=== PATIENT | male | born 1960 | race Caucasian/White ===

== ENCOUNTER → 2017-12-21 09:21 | Outpatient (CLI) | payer OTHER, SELFPAY ==
[2017-11-08 14:17] VITALS: BP 155/96; PULSE 84; RESP 16; TEMP 37.1; O2SAT 93; BMI 36.3
--- NOTE | 2017-11-08 14:24 | SDCEKG_ITS ---
Test Reason : Blood Pressure : / mmHG Vent. Rate : 083 BPM Atrial Rate : 083 BPM P-R Int : 162 ms QRS Dur : 108 ms QT Int : 380 ms P-R-T Axes : 044 001 021 degrees QTc Int : 446 ms Sinus rhythm with frequent Premature ventricular complexes Possible Inferior infarct , age undetermined Abnormal ECG Confirmed by VIOLA TOWNSEND, JL ([id number]), editor managing newspaper JESSE IRENE ([id number]) on 11/10/2017 3:31:41 PM Referred By: PAO Confirmed By:JL ROD MD
[2017-11-08 15:12] LABS: Absolute Lymphocyte Count 2.23 X10^3/ul (0.83-4.51); Absolute Neutrophil Count 6.1 X10^3/uL (2.0-7.7); Basophil# 0.03 X10^3/uL; Basophil% 0.3 % (0-1); Eosinophil# 0.06 X10^3/uL; Eosinophils% 0.7 % (0-5); Hematocrit 39.3 % (40-54); Hemoglobin 12.9 g/dl (13.0-16.5); Lymphocyte # 2.23 X10^3/ul (4.0); Lymphocyte % 24.5 % (19-41); Mean Corp Hgb Conc 32.8 g/gl (32-36); Mean Corpuscular Hgb 30.9 pg (27.0-32.0); Mean Platelet Vol. 9.4 fl (6.2-12.0); Monocyte# 0.56 X10^3/uL; Monocyte% 6.2 % (0-10); Neutrophil # 6.13 X10^3/uL (2.7-7.7); Neutrophil % 67.4 % (47-70); Platelet Count 284 K/mm3 (150-450); RBC Distribution Width CV 13.7 % (11.6-14.6); RBC Distribution Width SD 45.6 fl (35.1-43.9); Red Blood Count 4.18 M/mm3 (4.6-6.2); White Blood Count 9.1 K/mm3 (4.4-11.0)
[2017-11-08 15:13] LABS: POSITIVE COUNT NO; POSITIVE DIFFERENTIAL NO; POSITIVE MORPHOLOGY NO
[2017-11-08 15:29] LABS: Anion Gap 8 (5-15); BUN 28 mg/dL (7-18); BUN/Creat Ratio 29.7 RATIO (10-20); Calcium,Total 9.1 mg/dL (8.5-10.1); Chloride 107 mmol/L (98-107); Creatinine, Serum 0.94 mg/dL (0.70-1.30); EST Glomerular Filtration Rate 87 mL/min (>60); Est Glom Filt Rate - Afr Amer 105 mL/min (>60); Estimated Creatinine Clearance 96.81 ml/min; Glucose 99 mg/dL (70-110); Sodium Level 141 mmol/L (136-145)
== END ==
PROVIDERS: Family Provider Internal Medicine; PCP Internal Medicine; Visit Provider Specialist
DX: T84.031A Mechanical loosening of internal left hip prosthetic joint, initial encounter (principal)
CPT/HCPCS: 80048; 85025; 87077; 87081; 93005

== ENCOUNTER → 2018-01-19 14:28 | Outpatient (CLI) | payer OTHER, SELFPAY | PROVIDERS: Visit Provider Nurse Practitioner Adult Health | DX: R33.9 Retention of urine, unspecified (principal) | CPT/HCPCS: 87086 ==

== ENCOUNTER 2018-03-02 11:17 | Day surgery (SDC) | payer OTHER, SELFPAY ==
[2018-02-23 14:08] VITALS: BP 146/92; PULSE 71; RESP 16; TEMP 36.7; O2SAT 94; BMI 35.1
[2018-03-02] VITALS (11 sets, daily range): BP systolic 123–169; BP diastolic 83–102; PULSE 72–85; RESP 16–18; TEMP 36.2–37.2; O2SAT 96–100; BMI 35.1; BMI 33.0
[2018-03-02] MEDS: Cefazolin 2 GM in 0.9% Normal Saline 100 ML IV (12:40)
--- NOTE | 2018-03-02 13:25 | PROS_PTH ---
PATIENT: YEVGENIY BUSH LOC: [facility] [place] U#:[id number] AGE/SX: 58/M ROOM: RE03/02/[address]: Dr. Guille Vasquez MD : 1960 BED: DIS: 03/03/2018 SPEC #: [id number] RECD: 03/02/18 15:22 STATUS: STACY ANGEL #: [id number] MARLEN: 03/02/18 13:[address]: Guille Vasquez DEPT: SURGICAL PATHOLOGY RECD BY: Macario Villarreal ENTERED: 03/03/18 12:11 SP TYPE: TURP OTHR DR: Dr. Antonia Torres, DO Tissues: Prostate, NOS Procedures: Surgery Specimen Level IV HEADER OPERATION: Cysto, TUR, prostate, Olympus PRE-OP DIAGNOSIS: BPH with urinary retention TISSUE SUBMITTED: Prostate tissue MICROSCOPIC DIAGNOSIS Prostate tissue, TUR: Benign prostatic hyperplasia, glandular and stromal type. Mild acute and chronic inflammation. SJ:uday 03/04/18 MICROSCOPIC DESCRIPTION Slides are reviewed. GROSS DESCRIPTION Received is one container labeled with the patient's name and designated prostate tissue. The specimen consists of multiple irregular fragments of pink-rnedon, rubbery, soft tissue that in aggregate weigh 54.2 gm and measure in aggregate 6.5 x 6.5 x 4.5 cm. Commercial Drafter portions are submitted in 13 cassettes. / AM:uday 03/03/18 TC:5 CPT: 57928
--- NOTE | 2018-03-02 14:30 | PCM.OPRPT ---
Report of Operation Date of Procedure: 03/02/18 Pre-Operative Diagnosis: BPH with obstruction and urinary retention Post-Operative Diagnosis: Same Surgery/Procedure Performed:: Transurethral resection of the prostate Description of Surgical Findings:: 58-year-old male taken back to the operating room after smooth induction of general anesthesia he was placed supine on the table the catheter was removed the penis testicles were prepped and draped in usual sterile fashion went into the bladder with a 26 Serbian continuous flow resectoscope had a fiery large prostate with bilateral hypertrophy no median lobe I then started the resection of the prostate resected at the 6 o'clock position resected all the way back to the verumontanum and then resected the right lobe of the prostate and the resected the left lobe the prostate and switch back to the Ellik and and resected the apical tissue at the end of the resection had an open channel from the verumontanum into the bladder neck wide open still the sphincter was intact pulled back in his fingers sphincter was pulling together from the sphincter had a wide open resection of the bladder up try Crede maneuver however was not quite as strong as could a maneuver but did not want resect any more tissue had a nice wide open channel from the Jerome into the bladder after completion of the resection of the resection took about an hour placed the catheter into the bladder and Ellik out all the chips and the put the bladder and continues continues irrigation the urine is nice and clear. Type of Anesthesia:: General Drains: rutledge 3 way. - Admit VTE Documentation VTE Present on Admission: No VTE Mechan Device Prophylaxis: SCD's VTE Pharm Prophylaxis ordered?: No Reason prophylaxis not ordered:: Treatment Not Indicated
[2018-03-02] MEDS: 0.9% Normal Saline 1,000 ML 125 ML IV (20:28)
[2018-03-02] MEDS: Docusate Sodium 100 MG Capsule PO (21:25)
[2018-03-02] MEDS: Ciprofloxacin 500 MG Tablet PO (21:25)
[2018-03-03 02:15] VITALS: BP 118/76; PULSE 67; RESP 18; TEMP 36.9; O2SAT 96
[2018-03-03 02:16] VITALS: PULSE 67
[2018-03-03] MEDS: 0.9% Normal Saline 1,000 ML 125 ML IV (04:15)
--- NOTE | 2018-03-03 07:14 | PCM.DC.URO ---
Discharge Diet: Light diet - advance as tolerated Discharge Activity: May Drive May shower in (days): 1 Call your doctor if your incision/area has: Continuous Slow Oozing, Sudden Increased Bleeding, Increased Pain/ Swelling, Increased Redness, Foul Smelling Discharge, Swelling at the incision site Call your doctor if you observe: Fever of 101 or Higher, Inability to urinate, Uncontrolled pain Instructions: Transurethral Resection of the Prostate (TURP): Home Recovery Allergies/Adverse Reactions: Allergies hydrocodone Allergy (Verified 12/15/17 07:35) BLISTERS Medications to take at Discharge Furosemide [Lasix] 40 mg PO DAILY 11/08/17 lisinopril 20 mg tablet 20 mg PO BID tab 11/12/17 Amlodipine [Norvasc] 5 mg PO DAILY 02/23/18 Celecoxib [Celebrex] 200 mg PO DAILY 02/23/18 Oxycodone HCl/Acetaminophen [Percocet 5-325] 1 tablet PO BID 02/23/18 Ciprofloxacin [Cipro] 500 mg PO BID #20 tab 03/03/18 Hydrocodone/Acetaminophen [Wolcott 5-325 Tablet] 1 ea PO Q6H PRN PRN 5 Days #10 tab 03/03/18 Primary Care Physician: Antonia Torres DO [Primary Care Provider] - Please Follow Up With: Guille Vasquez MD When: March 17 at 1:45pm
--- NOTE | 2018-03-03 07:20 | DCINST_ITS ---
Discharge Diet: Light diet - advance as tolerated Discharge Activity: May Drive May shower in (days): 1 Call your doctor if your incision/area has: Continuous Slow Oozing, Sudden Increased Bleeding, Increased Pain/ Swelling, Increased Redness, Foul Smelling Discharge, Swelling at the incision site Call your doctor if you observe: Fever of 101 or Higher, Inability to urinate, Uncontrolled pain Instructions: Transurethral Resection of the Prostate (TURP): Home Recovery Allergies/Adverse Reactions: Allergies hydrocodone Allergy (Verified 12/15/17 07:35) BLISTERS Medications to take at Discharge Furosemide [Lasix] 40 mg PO DAILY 11/08/17 lisinopril 20 mg tablet 20 mg PO BID tab 11/12/17 Amlodipine [Norvasc] 5 mg PO DAILY 02/23/18 Celecoxib [Celebrex] 200 mg PO DAILY 02/23/18 Oxycodone HCl/Acetaminophen [Percocet 5-325] 1 tablet PO BID 02/23/18 Ciprofloxacin [Cipro] 500 mg PO BID #20 tab 03/03/18 Hydrocodone/Acetaminophen [[place]emo 5-325 Tablet] 1 ea PO Q6H PRN PRN 5 Days #10 tab 03/03/18 Primary Care Physician: Antonia Torres DO [Primary Care Provider] - Please Follow Up With: Guille Vasquez MD When: March 17 at 1:45pm
[2018-03-03] MEDS: BENZOCAINE/MENTHOL 1 LOZENGE MUCOUS MEM (08:01)
[2018-03-03 08:39] VITALS: BP 141/91; PULSE 73; RESP 18; TEMP 36.8; O2SAT 97
[2018-03-03 09:45] VITALS: PULSE 80
[2018-03-03] MEDS: Pantoprazole Sodium 40 MG Tablet PO (10:46)
[2018-03-03] MEDS: Ciprofloxacin 500 MG Tablet PO (10:46)
[2018-03-03] MEDS: Docusate Sodium 100 MG Capsule PO (10:46)
[2018-03-03 12:44] VITALS: BP 125/71; PULSE 92; RESP 18; TEMP 36.6; O2SAT 92
== END 2018-03-03 13:08 | disposition home or self-care (01) ==
LOC: SDC 11:19 → AC 11:48 → MS3 14:57
PROVIDERS: Family Provider Internal Medicine; PCP Internal Medicine; Visit Provider Urology
PROC: (CPT 52601; principal; 2018-03-02 13:15)
DX: N40.1 Benign prostatic hyperplasia with lower urinary tract symptoms (principal); R33.8 Other retention of urine; N41.0 Acute prostatitis; N41.1 Chronic prostatitis; I10 Essential (primary) hypertension; G47.30 Sleep apnea, unspecified; Z79.899 Other long term (current) drug therapy
CPT/HCPCS: 52601; 88305; J7030; J7120; J2405

== ENCOUNTER → 2018-03-22 07:55 | Outpatient (CLI) | payer OTHER, SELFPAY | PROVIDERS: Family Provider Internal Medicine; PCP Internal Medicine; Visit Provider Nurse Practitioner Adult Health | DX: R31.9 Hematuria, unspecified (principal) | CPT/HCPCS: 87086 ==

== ENCOUNTER → 2018-07-18 12:01 | Outpatient (CLI) | payer OTHER, SELFPAY ==
[2018-07-18 12:33] LABS: Absolute Lymphocyte Count 1.04 X10^3/ul (0.83-4.51); Absolute Neutrophil Count 1.5 X10^3/uL (2.0-7.7); Basophil# 0.01 X10^3/uL; Basophil% 0.4 % (0-1); Eosinophil# 0.01 X10^3/uL; Eosinophils% 0.4 % (0-5); Hematocrit 41.9 % (40-54); Hemoglobin 13.7 g/dl (13.0-16.5); Lymphocyte # 1.04 X10^3/ul (4.0); Lymphocyte % 37.4 % (19-41); Mean Corp Hgb Conc 32.7 g/gl (32-36); Mean Corpuscular Hgb 29.5 pg (27.0-32.0); Mean Corpuscular Volume 90.1 fL (80-94); Mean Platelet Vol. 9.4 fl (6.2-12.0); Monocyte# 0.19 X10^3/uL; Monocyte% 6.8 % (0-10); Neutrophil # 1.53 X10^3/uL (2.7-7.7); Platelet Count 196 K/mm3 (150-450); RBC Distribution Width CV 15.4 % (11.6-14.6); RBC Distribution Width SD 50.6 fl (35.1-43.9); Red Blood Count 4.65 M/mm3 (4.6-6.2); White Blood Count 2.8 K/mm3 (4.4-11.0)
[2018-07-18 12:34] LABS: POSITIVE COUNT NO; POSITIVE DIFFERENTIAL NO; POSITIVE MORPHOLOGY NO
[2018-07-18 12:47] LABS: Erythrocyte Sedimentation Rate 31 mm/hr (0-20)
[2018-07-18 12:55] LABS: CRP 4.74 mg/L (0.0-3.0)
== END ==
PROVIDERS: Family Provider Internal Medicine; PCP Internal Medicine; Visit Provider Specialist
DX: Z96.642 Presence of left artificial hip joint (principal)
CPT/HCPCS: 36415; 85025; 85652; 86140

== ENCOUNTER → 2018-08-03 09:19 | Outpatient (CLI) | payer OTHER, SELFPAY ==
--- NOTE | 2018-08-03 09:38 | RAD_ITS ---
CLINICAL HISTORY: Male, 58 years old. Left hip pain. Prior left hip arthroplasty. PROCEDURE: Left hip arthrocentesis. CONSENT: The procedure as well as the benefits and possible complications including infection and bleeding were expanding to the patient. Informed consent was obtained. FLUOROSCOPY TIME (if supplied): (0:29) minutes/seconds Fluid Removal: 3 cc of clear fluid. TECHNIQUE: (All elements of maximal sterile barrier technique followed, including US elements as applicable) The patient was in the supine position. The overlying skin was prepped and draped in usual sterile fashion. Following local anesthetic application and under direct fluoroscopic guidance, a 22-gauge spinal needle was placed into the hip joint. 2 cc of contrast was injected for confirmation. Following this, 3 cc of clear fluid was aspirated. The specimen was sent to the laboratory. RAD/Inj/Asp Sherman Jt Should/Hip/Knee IMPRESSION: Left hip aspiration. Electronically Signed: Yossi Butler MD at 12:54 EDT Tel [phone], Service support ,
[2018-08-03 11:17] LABS: Appearance/Body Fluid CLEAR; Color/Body Fluid COLORLESS
[2018-08-03 11:18] LABS: Body Fluid QC Type(s) BF2Q
[2018-08-04 14:16] LABS: Auto B Fluid Analyzer BKGD Ct COUNTS W/IN LIMITS (W/IN LIMITS)
== END ==
PROVIDERS: Family Provider Internal Medicine; PCP Internal Medicine; Visit Provider Specialist
DX: M25.552 Pain in left hip (principal); Z96.642 Presence of left artificial hip joint
CPT/HCPCS: 20610; 77002; 87015; 87070; 87075; 87101; 87116; 87205; 87206; 89050; Q9967

== ENCOUNTER → 2019-07-17 14:01 | Outpatient (CLI) | payer OTHER, SELFPAY ==
[2018-03-02 16:48] VITALS: BMI 33.0
[2019-07-17 15:28] LABS: PSA,Total - Annual Screen 1.23 ng/mL (0.00-4.00)
== END ==
PROVIDERS: Family Provider Internal Medicine; PCP Internal Medicine; Referring Provider Urology; Visit Provider Urology
DX: Z12.5 Encounter for screening for malignant neoplasm of prostate (principal)
CPT/HCPCS: 36415; 84153; G0103

== ENCOUNTER 2021-07-14 12:30 | Emergency (ER) | payer OTHER, SELFPAY ==
[2021-07-14 12:31] VITALS: BP 133/77; PULSE 48; RESP 18; TEMP 38.1; O2SAT 98; BMI 39.3
[2021-07-14 13:34] LABS: Absolute Lymphocyte Count 1.13 X10^3/uL (0.83-4.51); Absolute Neutrophil Count 15.2 X10^3/uL (2.0-7.7); Basophil# 0.04 X10^3/uL; Basophil% 0.2 % (0-1); Eosinophil# 0.01 X10^3/uL; Eosinophils% 0.1 % (0-5); Hematocrit 46.1 % (40-54); Lymphocyte # 1.13 X10^3/ul (0.83-4.51); Lymphocyte % 6.4 % (19-41); Mean Corp Hgb Conc 32.5 g/dL (32-36); Mean Corpuscular Hgb 30.4 pg (27.0-32.0); Mean Corpuscular Volume 93.5 fL (80-94); Mean Platelet Vol. 9.4 fl (6.2-12.0); Monocyte# 1.06 X10^3/uL; NRBC Flagged by Analyzer 0 % (0-5); Neutrophil % 86.6 % (47-70); Platelet Count 224 K/mm3 (150-450); RBC Distribution Width CV 13.7 % (11.6-14.6); RBC Distribution Width SD 46.5 fl (35.1-43.9); Red Blood Count 4.93 M/mm3 (4.6-6.2); White Blood Count 17.6 K/mm3 (4.4-11.0)
[2021-07-14 13:35] VITALS: BP 133/77; PULSE 48; RESP 18; TEMP 38.1; O2SAT 98
[2021-07-14 13:49] LABS: Anion Gap 6 (5-15); BUN 19 mg/dL (7-18); BUN/Creat Ratio 15.2 RATIO (10-20); Calcium,Total 9.1 mg/dL (8.5-10.1); Chloride 102 mmol/L (98-107); Creatinine, Serum 1.25 mg/dL (0.70-1.30); EST Glomerular Filtration Rate 62 mL/min (>60); Est Glom Filt Rate - Afr Amer 75 mL/min (>60); Estimated Creatinine Clearance 67.25 ml/min; Glucose 135 mg/dL (74-106); Potassium 4.6 mmol/L (3.5-5.1); Sodium Level 135 mmol/L (136-145)
[2021-07-14 14:40] LABS: Mucous, Urine 0 SEEN /hpf (<or=2+)
[2021-07-14 14:51] LABS: Color, Urine Yellow (Yellow); Glucose, Dipstick Normal (Normal); Ketone-Dipstick Negative (Negative); Leukocyte Esterase-Dipstick 500 /ul (Negative); Nitrite-Dipstick Positive (Negative); Occult Blood-Urine 250 /ul (Negative); Protein-Dipstick 100 mg/dl (Negative); Urine Bilirubin Dipstick Negative (Negative); Urine Clarity Cloudy (Clear); Urine Urobilinogen Normal (Normal); Urine pH 6.5 (5.0 - 8.0)
[2021-07-14 14:54] LABS: Lactic Acid 1.4 mmol/L (0.4-1.9)
[2021-07-14] MEDS: 0.9% Normal Saline 1,000 ML 999 ML IV (14:57)
[2021-07-14 14:58] LABS: Bacteria 2+ /hpf (None Seen); Red Blood Cells-Urine 10-25 SEEN /hpf (0-5); Squamous Epithelial Cells - UA 0-5 SEEN /hpf (0-5); White Blood Cells 50-100 SEEN /hpf (0-5)
--- NOTE | 2021-07-14 15:00 | RAD_ITS ---
STUDY: X-RAY CHEST REASON FOR EXAM: Male, 61 years old. Fever and nausea. Body aches. Severe headaches. TECHNIQUE: Single AP portable view of the chest. COMPARISON: Comparison is made with prior examination dated 11/11/2017. FINDINGS: Stable mild increased markings at the lung bases slightly more prominent on the left side suggests bibasilar atelectasis. There is no demonstrated pleural abnormality. Normal size heart. Normal mediastinum and jay. Normal visualized pulmonary arteries. Normal visualized aortic arch and descending thoracic aorta. There are degenerative changes of the visualized thoracic spine. Normal visualized ribs, clavicles, and shoulders. There is no demonstrated abnormality of the visualized soft tissue structures of the upper abdomen. RAD/Chest 1 View (Portable) IMPRESSION: Increased markings at the lung bases suggestive of bibasilar atelectasis. There has been essentially no change as compared to prior study. Electronically Signed: Yossi Butler MD at 15:16 EDT , Service support ,
[2021-07-14 15:17] VITALS: BP 130/78; PULSE 89; RESP 18; TEMP 36.6; O2SAT 97
[2021-07-14] MEDS: Ceftriaxone 1 GM/50 ML BAG IV (15:44)
--- NOTE | 2021-07-14 16:14 | EX.ED.DYSGE1 ---
HPI History of Present Illness Chief Complaint: Fever Narrative Narrative: Patient presented to an urgent care with fevers, dysuria, burning with urination and frequency of urination. He was found to have leukocytosis and was sent to the ED. He has no flank pain. He denies testicular pain. He has no pain with bowel movements. He has no abdominal pain. He has no cough or congestion or respiratory symptoms he has no upper respiratory congestion. He has no rash or neck stiffness. PFSH PFS Medical History (Updated 07/14/21 @ 16:[address] Javad Yanez MD) Abnormal EKG Diastolic dysfunction History of echocardiogram (~11/2016) Hypertension PVC's (premature ventricular contractions) Home Medications furosemide 40 mg PO DAILY 11/08/17 [History Last Taken Unknown] lisinopril 20 mg tablet 20 mg PO BID tab 11/12/17 [History Last Taken 03/02/18 06:00] amlodipine 5 mg PO DAILY 02/23/18 [History Last Taken 03/02/18 06:00] celecoxib [Celebrex] 200 mg PO DAILY 02/23/18 [History Last Taken Unknown] oxycodone-acetaminophen 1 tab PO BID 02/23/18 [History Last Taken Unknown] ciprofloxacin HCl 500 mg PO BID #20 tab 03/03/18 [Rx Last Taken Unknown] hydrocodone-acetaminophen 1 ea PO Q6H PRN PRN 5 Days #10 tab 03/03/18 [Rx Last Taken Unknown] Allergy/AdvReac Type Severity Reaction Status Date / Time hydrocodone Allergy BLISTERS Verified 07/14/21 12:33 Family History Mother Hypertension Surgical History History of cataract surgery History of hernia repair (~2012) History of left hip replacement (~09/2016) S/P bunionectomy Social History (Updated 11/12/17 @ 17:[address] Javad Wells MD) Smoking Status: Never smoker alcohol intake: never substance use type: does not use ROS ROS ED ROS Narrative Past medical history: Reviewed Medications: Reviewed Social history: Noncontributory Review of systems: All systems negative except as indicated General: Fever as in HPI Eyes: No visual changes ENT: No upper airway congestion, normal voice Neck: No neck pain Cardiovascular: No chest pain Respiratory: No shortness of breath or cough Gastrointestinal: No abdominal pain, nausea vomiting or diarrhea Genitourinary: Dysuria and frequency as in HPI. No testicular pain. Musculoskeletal: Denies myalgias no difficulty with ambulation Skin: No rash Neurological: No memory loss, confusion or any focal weakness Psych: No recent behavioral changes Hematologic: No easy bleeding or easy bruising EXAM Physical Exam Narrative Exam Narrative: Physical exam General: Patient appears uncomfortable. Head: Normocephalic, Atraumatic Eyes: Conjunctiva not pale ENT: Moist mucous membranes Neck: Supple, Nontender, No lymphadenopathy Cardiovascular: Regular rate, Regular rhythm Respiratory: No distress, CTA bilaterally Abdomen: Soft, Nontender, Nondistended. No suprapubic pain. Back: Nontender, Normal Inspection. Negative for: CVA tenderness Extremities: Nontender, No edema Skin: Normal color, No rash Neurological: Alert, Normal Strength, Normal Sensation Psychological: Normal affect Const Vital Signs: 07/14/21 12:31 07/14/21 13:35 07/14/21 15:17 Temperature 100.6 F H 100.6 F H 97.9 F Temperature Source Temporal Temporal Oral Pulse Rate 48 L 48 L 89 Respiratory Rate 18 18 18 Blood Pressure 133/77 H 133/77 H 130/78 H Blood Pressure Mean 95 95 95 Pulse Ox 98 98 97 Oxygen Delivery Method Room Air Room Air Room Air MDM MDM MDM Narrative Medical decision making narrative: Patient is found to have a UTI. This is consistent with the signs and symptoms. There is no evidence of sepsis. He appears well. He received Rocephin in the ED and will be discharged with cefdinir. He has no flank pain I am not suspicious of a kidney stone at this time, he has no other signs or symptoms of epididymitis or prostatitis. If he worsens he is to return. He understands this. Lab Data Labs: Laboratory Results - last 24 hr 07/14/21 07/14/21 07/14/21 13:25 13:25 14:23 WBC 17.6 H RBC 4.93 Hgb 15.0 Hct 46.1 MCV 93.5 MCH 30.4 MCHC 32.5 RDW Std Deviation 46.5 H RDW Coeff of Pawel 13.7 Plt Count 224 MPV 9.4 Immature Gran % (Auto) 0.700 Neut % (Auto) 86.6 H Lymph % (Auto) 6.4 L [place] % (Auto) 6.0 Eos % (Auto) 0.1 Baso % (Auto) 0.2 Absolute Neuts (auto) 15.2 H Absolute Lymphs (auto) 1.13 Nucleated RBC % 0 Sodium 135 L Potassium 4.6 Chloride 102 Carbon Dioxide 27.0 Anion Gap 6 BUN 19 H Creatinine 1.25 Estim Creat Clear Calc 67.25 Est GFR (MDRD) Af Amer 75 Est GFR (MDRD) Non-Af 62 BUN/Creatinine Ratio 15.2 Glucose 135 H Lactic Acid 1.4 Calcium 9.1 Urine Color Urine Clarity Urine pH Ur Specific [place] Urine Protein Urine Glucose (UA) Urine Ketones Urine Occult Blood Urine Nitrite Urine Bilirubin Urine Urobilinogen Ur Leukocyte Esterase Urine RBC Urine WBC Ur Squamous Epith Cells Urine Bacteria Urine Mucus 07/14/21 14:35 WBC RBC Hgb Hct MCV MCH MCHC RDW Std Deviation RDW Coeff of Pawel Plt Count MPV Immature Gran % (Auto) Neut % (Auto) Lymph % (Auto) [place] % (Auto) Eos % (Auto) Baso % (Auto) Absolute Neuts (auto) Absolute Lymphs (auto) Nucleated RBC % Sodium Potassium Chloride Carbon Dioxide Anion Gap BUN Creatinine Estim Creat Clear Calc Est GFR (MDRD) Af Amer Est GFR (MDRD) Non-Af BUN/Creatinine Ratio Glucose Lactic Acid Calcium Urine Color Yellow Urine Clarity Cloudy Urine pH 6.5 Ur Specific [place] 1.020 Urine Protein 100 H Urine Glucose (UA) Normal Urine Ketones Negative Urine Occult Blood 250 H Urine Nitrite Positive H Urine Bilirubin Negative Urine Urobilinogen Normal Ur Leukocyte Esterase 500 H Urine RBC 10-25 SEEN Urine WBC 50-100 SEEN Ur Squamous Epith Cells 0-5 SEEN Urine Bacteria 2+ Urine Mucus 0 SEEN Radiography Diagnostic Testing: Radiology Impression Chest X-Ray 07/14/21 15:00 IMPRESSION: Increased markings at the lung bases suggestive of bibasilar atelectasis. There has been essentially no change as compared to prior study. Electronically Signed: Yossi Butler MD at 15:16 EDT , Service support , Discharge Plan Triage Chief Complaint: Fever ED Provider: Javad Yanez Dx/Rx/DC Orders Clinical Impression: Acute UTI Prescriptions: No Action lisinopril 20 mg tablet 20 mg PO BID RF: 0 furosemide 40 MG tablet 40 mg PO DAILY RF: 0 celecoxib [Celebrex] 200 MG capsule 200 mg PO DAILY RF: 0 amlodipine 5 MG tablet 5 mg PO DAILY RF: 0 oxycodone-acetaminophen 1 TABLET tablet 1 tab PO BID RF: 0 hydrocodone-acetaminophen 1 EACH tablet 1 ea PO Q6H PRN PRN (Reason: Pain) 5 Days Qty: 10 RF: 0 ciprofloxacin HCl 500 MG tablet 500 mg PO BID Qty: 20 RF: 0 Primary Care Provider: Antonia Torres Referrals: Antonia Torres DO [Primary Care Provider] -
== END 2021-07-14 16:33 | disposition home or self-care (01) ==
PROVIDERS: Emergency Provider Emergency Medicine; PCP Internal Medicine
DX: N39.0 Urinary tract infection, site not specified (principal); I10 Essential (primary) hypertension; Z79.1 Long term (current) use of non-steroidal anti-inflammatories (NSAID); Z79.899 Other long term (current) drug therapy; Z96.642 Presence of left artificial hip joint
CPT/HCPCS: 71045; 80048; 81001; 83605; 85025; 96361; 96365; 99284; J7030

== ENCOUNTER → 2021-07-14 | Outpatient (CLI) | payer OTHER, SELFPAY ==
[2021-07-14 10:17] LABS: Absolute Lymphocyte Count 1.26 X10^3/uL (0.83-4.51); Absolute Neutrophil Count 15.5 X10^3/uL (2.0-7.7); Basophil# 0.05 X10^3/uL; Basophil% 0.3 % (0-1); Eosinophil# 0.01 X10^3/uL; Eosinophils% 0.1 % (0-5); Hematocrit 47.6 % (40-54); Hemoglobin 15.5 g/dL (13.0-16.5); Lymphocyte # 1.26 X10^3/ul (0.83-4.51); Lymphocyte % 6.9 % (19-41); Mean Corp Hgb Conc 32.6 g/dL (32-36); Mean Corpuscular Hgb 30.9 pg (27.0-32.0); Mean Platelet Vol. 9.8 fl (6.2-12.0); Monocyte# 1.19 X10^3/uL; Monocyte% 6.5 % (0-10); NRBC Flagged by Analyzer 0 % (0-5); Neutrophil # 15.54 X10^3/uL (2.7-7.7); Neutrophil % 85.4 % (47-70); Platelet Count 227 K/mm3 (150-450); RBC Distribution Width CV 13.8 % (11.6-14.6); RBC Distribution Width SD 47.6 fl (35.1-43.9); Red Blood Count 5.01 M/mm3 (4.6-6.2); White Blood Count 18.2 K/mm3 (4.4-11.0)
[2021-07-14 10:35] LABS: Hemoglobin A1c 5.7 % (3.8-5.6)
[2021-07-14 10:37] LABS: ALB/GLOB Ratio 1.2 RATIO (0.9-2.4); AST(SGOT) 39 U/L (15-37); Alanine Aminotransfer ALT/SGPT 83 U/L (16-61); Albumin, Serum 4.1 g/dL (3.2-5.0); Alkaline Phosphatase 82 U/L (45-117); Anion Gap 8 (5-15); BUN 17 mg/dL (7-18); BUN/Creat Ratio 14.2 RATIO (10-20); Calcium,Total 9.2 mg/dL (8.5-10.1); Chloride 102 mmol/L (98-107); EST Glomerular Filtration Rate 65 mL/min (>60); Est Glom Filt Rate - Afr Amer 79 mL/min (>60); Globulin 3.5 g/dL (2.2-4.2); Glucose 119 mg/dL (74-106); Potassium 4.6 mmol/L (3.5-5.1); Protein, Total 7.6 g/dL (6.4-8.2); Sodium Level 136 mmol/L (136-145); Thyroid Stim Hormone (TSH) 1.02 uIU/mL (0.358-3.74)
== END | disposition home or self-care (01) ==
LOC: LABSPEC 10:08
PROVIDERS: PCP Internal Medicine; Visit Provider Nurse Practitioner
DX: R11.0 Nausea (principal); R35.8 Other polyuria
CPT/HCPCS: 80053; 83036; 84443; 85025

== ENCOUNTER 2024-05-17 07:05 | Day surgery (SDC) | payer MEDICARE, SELFPAY ==
[2024-05-17] VITALS (8 sets, daily range): BP systolic 104–158; BP diastolic 69–92; PULSE 58–70; RESP 14–16; TEMP 36.2–36.3; O2SAT 93–97; BMI 39.5
--- NOTE | 2024-05-17 | COLBX_PTH ---
PATIENT: YEVGENIY BUSH LOC: [place] U#:[id number] AGE/SX: 64/M ROOM: RE05/17/[address]: Dr. Thania Maddox MD : 1960 BED: DIS: 05/17/2024 SPEC #: [id number] RECD: 05/17/24 11:11 STATUS: STACY REArchana #: [id number] MARLEN: 05/17/24 00:[address]: Thania Maddox DEPT: SURGICAL PATHOLOGY RECD BY: Dylan Dunne ENTERED: 05/17/24 12:45 SP TYPE: COLON BX OTHR DR: Dr. Antonia Torres DO Tissues: A - Ascending colon B - Descending colon C - Descending colon D - Sigmoid colon biopsy Procedures: Surgery Specimen Level IV HEADER OPERATION: Colonoscopy with polypectomy and biopsy PRE-OP DIAGNOSIS: Encounter for screening for malignant neoplasm of colon TISSUE SUBMITTED: A- Ascending colon polyp, B- Descending colon polyps x2, C- #2 descending colon polyp, D- Sigmoid polyp x2 and hot snare MICROSCOPIC DIAGNOSIS A. Ascending colon polyp, biopsy: Fragments of tubular adenoma. B. Descending colon polyps x2, biopsy: Fragments of tubular adenoma. C. Descending colon polyp #2, polypectomy: Inflammatory polyp. D. Sigmoid polyp x2, biopsy: Fragments of hyperplastic polyp. / 05/18/2024 MICROSCOPIC DESCRIPTION Slides are reviewed. GROSS DESCRIPTION A. Received in fixative is one container labeled with the patient's name and designated Ascending colon polyp. The specimen consists of multiple irregular fragments of light rendon soft tissue that in aggregate measure 0.6 x 0.5 x 0.1 cm. The specimen is totally submitted in one cassette. B. Received in fixative is one container labeled with the patient's name and designated Descending colon polyp x2. The specimen consists of multiple irregular fragments of light rendon soft tissue that in aggregate measure 0.6 x 0.5 x 0.1 cm. The specimen is totally submitted in one cassette. C. Received in fixative is one container labeled with the patient's name and designated Descending colon polyp #2. The specimen consists of a pink-red polyp measuring 0.6 x 0.7 x 0.5 cm. The presumed base is inked. The polyp is bisected and submitted entirely in one cassette. D. Received in fixative is one container labeled with the patient's name and designated Sigmoid colon polyp. The specimen consists of multiple irregular fragments of pink soft tissue mixed with fecal material that in aggregate measure 0.6 x 0.5 x 0.2 cm. The specimen is totally submitted in one cassette. [place] 05/17/2024 TC:1 CPT:10458f5
--- NOTE | 2024-05-17 07:16 | PCM.PRE.AN2 ---
ASA Classification* ASA Classification ASA Classification: 2 Assessment & Plan Anesthesia* Anesthesia Assessment Anesthesia Assessment: Discussed sedation and/or anesthesia options, risks, benefits, and alternatives with patient/parents/legal guardian/POA. Questions invited. The patient/parents/legal guardian/POA seems to understand and agrees to proceed with anesthesia plan. Reviewed the physical assessment, medical history, allergy history and patient home medications list prior to surgery/procedure/anesthetic and documented any changes. Performed airway and anesthesia risk assessments. Procedural Plan Procedural Plan:: Proceed w/ Anesthesia plan Anesthesia Type Anesthesia Type: MAC Anesthesia Focused Assessment* Airway Assessment Mouth opens: >3 cm Mallampati Score: II Focused Labs Anesthesia Preop lab: CBC WBC 17.6 K/mm3 (4.4-11.0) H 07/14/21 13:25 RBC 4.93 M/mm3 (4.6-6.2) 07/14/21 13:25 Hgb 15.0 g/dL (13.0-16.5) 07/14/21 13:25 Hct 46.1 % (40-54) 07/14/21 13:25 Plt Count 224 K/mm3 (150-450) 07/14/21 13:25 CHEMISTRY Potassium 4.6 mmol/L (3.5-5.1) 07/14/21 13:25 Sodium 135 mmol/L (136-145) L 07/14/21 13:25 BUN 19 mg/dL (7-18) H 07/14/21 13:25 Creatinine 1.25 mg/dL (0.70-1.30) 07/14/21 13:25 Glucose 135 mg/dL (74-106) H 07/14/21 13:25 TSH 1.02 uIU/mL (0.358-3.74) 07/14/21 08:47 COAG PT 13.2 SECONDS (11.7-14.9) 12/13/17 13:28 Pre-Assessment Diagnosis/Proposed Procedure Planned Operative Procedure(s): CSCOPE OA Anesthesia History Anesthesia History - life skills coordinator: Anesthesia History - life skills coordinator Hx Hospitalization No 05/11/24 14:08 Any Problems With Anesthesia No 05/11/24 14:08 Cholinesterase deficiency No 05/11/24 14:08 You/Your Family Experience No 05/11/24 14:08 fever (hyperthermia) with Relationship Recent Exposure to Contagious No 03/02/18 11:41 Disease Does patient have nerve No 05/11/24 14:08 stimulator Patient instructed to have device shut off --Does patient have Pacemaker or ICD? When Was Last Pacemaker Check QUESTION #4 FULL TEXT: You/Your Family Experience fever (hyperthermia) with Anesthesia Last Oral Intake Last Oral intake: Last Oral Intake NPO since Meds taken in AM with sips of water? Meds patient instructed to take am of surgery PONV PONV - life skills coordinator: PONV - life skills coordinator Female No 05/11/24 14:08 HX of Motion Sickness No 05/11/24 14:08 HX of N/V After Surgery No 05/11/24 14:08 Non-Smoker Yes 05/11/24 14:08 Duration of Surgery greater No 05/11/24 14:08 than 60 minutes Number of Risk Factors 1 05/11/24 14:08 PONV Score Low Risk 05/11/24 14:08 Height & Weight Height & Weight: Anesthesia: Height & Weight Height 6 ft 1 in 03/07/24 12:21 Respiratory Assessment Respiratory Assessment - life skills coordinator: Respiratory Tract Infection Hx - life skills coordinator Hx Respiratory Tract Infection No 05/11/24 14:08 STOP Sleep Apnea STOP Sleep Apnea - life skills coordinator: STOP Sleep Apnea - life skills coordinator Hx Hypertension Yes: CONTROLLED WITH MED 05/11/24 14:08 Hx Sleep Apnea No 05/11/24 14:08 CPAP No 03/02/18 14:52 BIPAP Yes 02/23/18 14:00 Do you snore loudly (louder No 05/11/24 14:08 than talking or can be heard Do you often feel tired/ No 05/11/24 14:08 fatigued/ sleepy during daytime? Has anyone observed you stop No 05/11/24 14:08 breathing during sleep? STOP Results Negative 05/11/24 14:08 QUESTION #5 FULL TEXT : Do you snore loudly (louder than talking or can be heard through closed doors)? Tobacco Use History Tobacco Use History - life skills coordinator: Tobacco Use History - life skills coordinator Tobacco Use Smoking Status Never smoker 05/11/24 14:08 Hx Tobacco Use No 05/11/24 14:08 Years Smoking Packs Smoked per Day Smoking Cessation Date was within the last 15 years Hx Smoking Cessation Date Hx Smoking Cessation Counseling Hematologic Medial History Hematologic Hx - life skills coordinator: Hematologic Medical Hx - property underwriter Hx of Blood Transfusion No 05/11/24 14:08 Hx of Transfusion in last 3 No 05/11/24 14:08 Months Date of Last Transfusion (if within last 3 months) Ever experience any problems No 05/11/24 14:08 with transfusion(s)? Specify any problems Hx of Preganancy in last 3 N/A 05/11/24 14:08 Months Nurse Filling Out Transfusion DSCHRIBER 05/11/24 14:08 & Questions: Date: 05/11/24 05/11/24 14:08 Time: 14:10 05/11/24 14:08 Patient unable to answer at this time (ie. confused, unrespo /Reproduction History /Reproductive History - life skills coordinator: /Reproductive Hx- life skills coordinator Hx Now No 05/11/24 14:08 Gestational Age (in weeks): EDC: Hx Hx Para Hx Section SAB No 05/11/24 14:08 PFSH Medical History Wears glasses Wears dentures Depression Diabetes Arthritis Prostate disease High cholesterol Injury of back Dietary restriction Non-smoker History of pain when walking Cardiology follow-up encounter History of stress test History of irregular heartbeat Abnormal EKG PVC's (premature ventricular contractions) History of echocardiogram (~11/2016) Hypertension Diastolic dysfunction Home Medications ?Medication ?Instructions ?Recorded ?Last Taken ?Type furosemide 40 mg tablet 40 mg PO DAILY WATER PILL 11/08/17 Unknown History celecoxib 200 mg capsule (Celebrex) 200 mg PO DAILY 02/23/18 Unknown History losartan 100 mg tablet 100 mg PO DAILY 03/07/24 Unknown History metformin 500 mg tablet 500 mg PO BID 03/07/24 Unknown History sertraline 50 mg tablet (Zoloft) 50 mg PO DAILY 03/07/24 Unknown History tirzepatide 2.5 mg/0.5 mL 5 mg subcut MO 03/07/24 05/08/24 History subcutaneous pen injector (Mounjaro) amoxicillin 500 mg capsule 2,000 mg PO PRN PRN PROCEDURES 05/11/24 Unknown History Allergy/AdvReac Type Severity Reaction Status Date / Time hydrocodone Allergy BLISTERS Verified 05/11/24 14:06 Family History Mother Hypertension Surgical History History of cardiac catheterization Hx of total knee arthroplasty Hx of transurethral resection of prostate History of shoulder surgery History of cataract surgery S/P bunionectomy History of hernia repair (~2012) History of left hip replacement (~09/2016) Social History household members: none current occupational status: employed current occupation: [employer] Smoking Status: Never smoker alcohol intake: never substance use type: does not use Review of Systems (Anesthesia) ROS Narrative System reviewed and no additional complaints, except as documented.
--- NOTE | 2024-05-17 07:18 | H&P.OPEN ---
[facility] - General General Date of Service: 05/17/24 HPI Narrative YEVGENIYSarah Beth BUSH, is a 64 M who presents for screening colonoscopy. Patient never had previous colonoscopy. Patient denies any family history of colon cancer. Patient has bowel movements daily denies any blood. Patient denies any chronic abdominal pain/nausea/vomiting/reflux. [facility] Medical History Wears glasses Wears dentures Depression Diabetes Arthritis Prostate disease High cholesterol Injury of back Dietary restriction Non-smoker History of pain when walking Cardiology follow-up encounter History of stress test History of irregular heartbeat Abnormal EKG PVC's (premature ventricular contractions) History of echocardiogram (~11/2016) Hypertension Diastolic dysfunction Home Medications ?Medication ?Instructions ?Recorded ?Last Taken ?Type furosemide 40 mg tablet 40 mg PO DAILY WATER PILL 11/08/17 Unknown History celecoxib 200 mg capsule (Celebrex) 200 mg PO DAILY 02/23/18 Unknown History losartan 100 mg tablet 100 mg PO DAILY 03/07/24 Unknown History metformin 500 mg tablet 500 mg PO BID 03/07/24 Unknown History sertraline 50 mg tablet (Zoloft) 50 mg PO DAILY 03/07/24 Unknown History tirzepatide 2.5 mg/0.5 mL 5 mg subcut MO 03/07/24 05/08/24 History subcutaneous pen injector (Mounjaro) amoxicillin 500 mg capsule 2,000 mg PO PRN PRN PROCEDURES 05/11/24 05/17/24 05:00 History Allergy/AdvReac Type Severity Reaction Status Date / Time hydrocodone Allergy BLISTERS Verified 05/17/24 07:25 Family History Mother Hypertension Surgical History History of cardiac catheterization Hx of total knee arthroplasty Hx of transurethral resection of prostate History of shoulder surgery History of cataract surgery S/P bunionectomy History of hernia repair (~2012) History of left hip replacement (~09/2016) Social History household members: none current occupational status: employed current occupation: [employer] Smoking Status: Never smoker alcohol intake: never substance use type: does not use Past Medical/Surgical History Planned Operation Planned Operative Procedure(s): CSCOPE OA S.O.S: No Previous Hospitalizations/Surgeries HX Hospitalizations: No HX of Surgeries: LEFT HIP ARTHROPLASTY 2016 BILAT BUNIONECTOMY 1978 LASIK EYE SURGERY 12 YRS AGO CATARACTS IOL BILAT 2015 DEVIATED SEPTUM REPAIR lth revision 12/2017 Any Problems With Anesthesia: No You/Your Family Experience Fever (Hyperthermia) With Anes: No Cholinesterase deficiency: No Cardiovascular Hx Chest Pain within Last 2 months: No (ONLY DURING ILLNESS WITHIN LAST 2 MONTHS/PNEUMONIA/RESOLVED AT THIS TIME) Hx of Irregular Heartbeat and/or Afib: No Hx Heart Attack: No Hx Congestive Heart Failure: No Hx Rheumatic Fever: No Hx Hypertension: Yes (CONTROLLED WITH MED) Hx Internal Defibrillator: No Hx Pacemaker: No Hx Cardiac Catheterization: Yes (2017) Hx Cardiac Surgery/Stents/Etc.: No Hx Stress Test: Yes (2018 and echo 2017) Hx Pain in Legs when Walking/Leg Cramps: No Respiratory Chronic Cough: No HX of Shortness of Breath: No Hoarseness: No Hx Chronic Obstructive Pulmonary Disease (COPD): No (.) Hx Asthma: No Hx Emphysema: No Hx Sleep Apnea: No CPAP: No BIPAP: Yes Hx Respiratory Tract Infection/Cold (presently): No Do You Snore Loudly (louder than talking or can be heard): No Do You Often Feel Tired/ Fatigued/ Sleepy Dring Daytime?: No Has Anyone Observed You Stop Breathing During Sleep?: No Result (for STOP score): Negative Hx Smoking: No Smoking Status: Never smoker Gastrointestinal Hx Gastrointestinal Disorders: No Hx Gastrointestinal Bleed: No Hx Ulcer: No Hx Hiatal Hernia: No Difficulty Chewing/Swallowing: No Special diet followed at home: No Hx Unplanned Weight Loss of 20#: No HX Unplanned Weight Gain of 20#: No Neurological Hx Seizures: No HX Syncope/Blackout Spells/Unconsciousness: No Hx Transient Ischemic Attacks (TIA): No Hx Multiple Sclerosis: No Hx Parkinson's Disease: No Hx Head/Neck Injury: Yes (1984 HAD CONCUSSION) Hx Headaches: Yes (MIGRAINE HX) Hx Back Injury/Pain: No Recent Onset of Speech Difficulty: No Restless Legs: Yes Does patient have nerve stimulator: No Blood Disorder Hx Leukemia: No Bleeding Tendencies: No Hx Deep Vein Thrombosis: No Hx High Cholesterol: No Blood Transmitted Disease: No Hx Hepatitis: No Hx Cirrhosis: No Hx Anemia: No Hx Blood Disorders: No Reproduction : No Genitourinary Hx Renal Disease: No (enlarged prostate has cathether since 12/2017) Hx Dialysis: No Musculoskeletal Hx Arthritis: Yes (OA) Hx Rheumatoid Arthritis: No Hx Gout: No Recent Onset of an Orthopedic Problem: No Endocrine Hx Diabetes: No Thyroid Disease: No Hx Steroid Therapy: Yes (PREDNISONE WILL FINISH 11/09/17 FOR PNEUMONIA) Psycho/Social Hx Substance Use: No Hx Alcohol Use: No Hx Anxiety: No Hx Depression: No Mental Illness: No Hx Dementia: No Miscellaneous Hx Cancer: No Recent Exposure to Contagious Disease: No Hx of C-Diff: No Any Loose Teeth: No (FULL SET OF DENTURES) Allergies hydrocodone Allergy (Verified 05/17/24 07:25) BLISTERS Discharge Is Pt Admitted From a Assisted, or a Snf: No After D/C, Where Do you Plan to Go: Return Home From the PAT History Number of Risk Factors: 1 Physical Exam Const alert, oriented x3 and no apparent distress HEENT normocephalic and head/scalp atraumatic Resp normal respiratory effort Cardio regular rate GI soft to palpation and non-tender; Negative for non-distended Palpation: Negative for guarding Extremity no clubbing, cyanosis or edema Skin no rashes or lesions noted Neuro CN's II-XII intact bilaterally Psych mental status grossly normal Assessment & Plan Assessment/Plan (1) Encounter for screening for malignant neoplasm of colon: Surgery Risks - Colonoscopy I discussed with the patient the risks of the procedure: Yes Risks Include but are not Limited To: Risks include but are not limited to: Bleeding, perforation requiring further surgery, inability to complete colonoscopy requiring barium enema.
[2024-05-17] MEDS: Lactated Ringers 1,000 ML 15 ML IV (07:50)
[2024-05-17 08:01] LABS: Bedside Glucose 104 mg/dL (74-106)
--- NOTE | 2024-05-17 09:09 | PCM.POST.ANE ---
Anesthesia: Postop Eval I Current Vital Signs Temperature: 97.2 F Pulse Rate: 67 Blood Pressure: 109/73 Respiratory Rate: 14 Pulse Ox: 96 Oxygen Delivery Method: Room Air Assessment Airway patent: Yes Spontaneous unlabored respirations: Yes Mental status: Awake and Calm nausea: No Vomiting: No Anesthesia Complication: No Fluid Hydration Crystalloid volume administer (ml): 400 Total IV fluid infused: 400 Progress Note Anesthesia document: Postop Eval 1 completed: Yes
--- NOTE | 2024-05-17 09:13 | OP.COLON_ITS ---
Patient Name: Cipriano Steele Procedure Date: 05/17/2024 8:19 AM Date of : 1960 Age: 64 Procedure: Colonoscopy Indications: Screening for colorectal malignant neoplasm Providers: Thania Maddox MD Medicines: Monitored Anesthesia Care Patient Profile: This is a 64 year old male. Last Colonoscopy: none. The patient's first colonoscopy is today. Complications: No immediate complications. Procedure: Pre-Anesthesia Assessment: - Prior to the procedure, a History and Physical was performed, and patient medications and allergies were reviewed. The patient's tolerance of previous anesthesia was also reviewed. The risks and benefits of the procedure and the sedation options and risks were discussed with the patient. All questions were answered, and informed consent was obtained. Prior Anticoagulants: The patient has taken no anticoagulant or antiplatelet agents. ASA Grade Assessment: Per anesthesia. After reviewing the risks and benefits, the patient was deemed in satisfactory condition to undergo the procedure. After I obtained informed consent, the scope was passed under direct vision. Throughout the procedure, the patient's blood pressure, pulse, and oxygen saturations were monitored continuously. The Colonoscope was introduced through the anus and advanced to the cecum, identified by appendiceal orifice and ileocecal valve. The colonoscopy was performed without difficulty. The patient tolerated the procedure well. The quality of the bowel preparation was good. Scope In: 8:33:14 AM Scope Withdrawal Time 0 hours 24 minutes 37 seconds Scope Out: 9:02:28 AM Total Procedure Duration Time 0 hours 29 minutes 14 seconds Findings: The perianal and digital rectal examinations were normal. Five semi-pedunculated polyps were found in the sigmoid colon, descending colon and ascending colon. The polyps were 3 to 8 mm in size (8mm polyp was in descending colon). These polyps were removed with a hot snare. Resection and retrieval were complete. A less than 5 mm polyp was found in the sigmoid colon. The polyp was sessile. The polyp was removed with a cold biopsy forceps. Resection and retrieval were complete. A few small-mouthed diverticula were found in the sigmoid colon. The exam was otherwise without abnormality on direct and retroflexion views. Impression: - Five 3 to 8 mm polyps in the sigmoid colon, in the descending colon and in the ascending colon, removed with a hot snare. Resected and retrieved. - One less than 5 mm polyp in the sigmoid colon, removed with a cold biopsy forceps. Resected and retrieved. - Diverticulosis in the sigmoid colon. - The examination was otherwise normal on direct and retroflexion views. Recommendation: - Discharge patient to home. - High fiber diet. - Continue present medications. - Await pathology results. - Repeat colonoscopy in 3 years for surveillance of multiple polyps. Procedure Code(s): --- Professional --- 31783, PT, Colonoscopy, flexible; with removal of tumor(s), polyp(s), or other lesion(s) by snare technique 22905, 59, Colonoscopy, flexible; with biopsy, single or multiple Diagnosis Code(s): --- Professional --- Z12.11, Encounter for screening for malignant neoplasm of colon D12.5, Benign neoplasm of sigmoid colon D12.4, Benign neoplasm of descending colon D12.2, Benign neoplasm of ascending colon K57.30, Diverticulosis of large intestine without perforation or abscess without bleeding CPT copyright 2021 [employer]. All rights reserved. The codes documented in this report are preliminary and upon punching machine operator review may be revised to meet current compliance requirements. MD Thania Dorado MD 05/17/2024 9:12:49 AM This report has been signed electronically. Number of Addenda: 0 Note Initiated On: 05/17/2024 8:19 AM
--- NOTE | 2024-05-17 09:13 | OP.CCLET_ITS ---
05/17/2024 Antonia Torres [address] [place] [address] Re : Colonoscopy procedure for Cipriano Steele Dear Dr. Torres This procedure was performed on Friday, May 17, 2024. My impressions and recommendations are as follows: Impressions : - Five 3 to 8 mm polyps in the sigmoid colon, in the descending colon and in the ascending colon, removed with a hot snare. Resected and retrieved. - One less than 5 mm polyp in the sigmoid colon, removed with a cold biopsy forceps. Resected and retrieved. - Diverticulosis in the sigmoid colon. - The examination was otherwise normal on direct and retroflexion views. Recommendations : - Discharge patient to home. - High fiber diet. - Continue present medications. - Await pathology results. - Repeat colonoscopy in 3 years for surveillance of multiple polyps. My findings are described in the full procedure note, which is enclosed. If I can be of further assistance, please feel free to contact me at Doctor phone number(s): , Work: . Sincerely, MD Thania Dorado MD 05/17/2024 9:12:49 AM This report has been signed electronically.
--- NOTE | 2024-05-17 15:11 | PCM.POSTANE2 ---
Anesthesia Postop Eval I Sum Postop Eval Completion status Anesthesia document: Postop Eval 1 completed: Yes Anesthesia Postop Eval I Summary Anesthesia Postop Eval I Summary: Anesthesia Postop Eval I: Assessment Summary Airway patent Yes 05/17/24 09:13 [email or web address] Spontaneous unlabored Yes 05/17/24 09:13 [email or web address] respirations Mental status Awake,Calm 05/17/24 09:13 [email or web address] nausea No 05/17/24 09:13 [email or web address] Vomiting No 05/17/24 09:13 [email or web address] Anesthesia Postop Eval I: Fluid Summary Crystalloid volume administer 400 05/17/24 09:13 [email or web address] (ml) Colloids volume administered ( ml) Blood Product volume administered (ml) Total IV fluid infused 400 05/17/24 09:13 [email or web address] Anesthesia Postop Eval I: Summary Notes Anesthesia Complication No 05/17/24 09:13 [email or web address] Anesthesia Complication Comment: Post-operative progress note Anesthesia: Postop Eval II Evaluation Mental status: Awake and Calm Pain Level: 0 nausea: No Vomiting: No Complications Anesthesia Complication: No
== END 2024-05-17 09:59 | disposition home or self-care (01) ==
LOC: EN 07:06 → AC 07:08
PROVIDERS: PCP Internal Medicine; Referring Provider Internal Medicine; Visit Provider Surgery
PROC: 0DJD8ZZ Inspection of Lower Intestinal Tract, Via Natural or Artificial Opening Endoscopic (ICD-10-PCS; CPT 45378; principal; 2024-05-17 08:40)
DX: Z12.11 Encounter for screening for malignant neoplasm of colon (principal); E11.9 Type 2 diabetes mellitus without complications; K63.5 Polyp of colon; Z79.85 Long-term (current) use of injectable non-insulin antidiabetic drugs; Z79.84 Long term (current) use of oral hypoglycemic drugs; K57.30 Diverticulosis of large intestine without perforation or abscess without bleeding; E78.00 Pure hypercholesterolemia, unspecified; I10 Essential (primary) hypertension; Z79.899 Other long term (current) drug therapy; F32.A Depression, unspecified; Z96.659 Presence of unspecified artificial knee joint; Z96.642 Presence of left artificial hip joint
CPT/HCPCS: 45385; 45380; 82962; 88305; J7120; J2405

== ENCOUNTER → 2024-07-14 | Outpatient (CLI) | payer MEDICARE, SELFPAY ==
[2024-07-14 11:40] LABS: Hemoglobin A1c 5.5 % (3.8-5.6)
== END | disposition home or self-care (01) ==
LOC: LAB 09:50
PROVIDERS: PCP Internal Medicine; Referring Provider Specialist; Visit Provider Specialist
DX: M25.551 Pain in right hip (principal); E11.9 Type 2 diabetes mellitus without complications
CPT/HCPCS: 36415; 83036

== ENCOUNTER → 2024-09-07 | Outpatient (CLI) | payer MEDICARE, SELFPAY ==
--- NOTE | 2024-09-07 07:48 | EKG12_ITS ---
Test Reason : PRE OP Blood Pressure : / mmHG Vent. 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
[2024-09-07 08:47] LABS: Absolute Neutrophil Count 6.5 X10^3/uL (2.0-7.7); Basophil# 0.05 X10^3/uL; Basophil% 0.5 % (0-1); Eosinophil# 0.21 X10^3/uL; Eosinophils% 2.1 % (0-5); Hematocrit 47.6 % (40-54); Hemoglobin 15.1 g/dL (13.0-16.5); Mean Corp Hgb Conc 31.7 g/dL (32-36); Mean Corpuscular Hgb 30.1 pg (27.0-32.0); Mean Corpuscular Volume 94.8 fL (80-94); Mean Platelet Vol. 9.1 fl (6.2-12.0); Monocyte# 0.57 X10^3/uL; Monocyte% 5.7 % (0-10); NRBC Flagged by Analyzer 0 % (0-5); Neutrophil % 65.1 % (47-70); Platelet Count 227 K/mm3 (150-450); RBC Distribution Width CV 14.2 % (11.6-14.6); RBC Distribution Width SD 49.2 fl (35.1-43.9); Red Blood Count 5.02 M/mm3 (4.6-6.2)
[2024-09-07 09:17] LABS: Albumin, Serum 4.1 g/dL (3.2-5.0); Anion Gap 5 (5-15); BUN 15 mg/dL (7-18); BUN/Creat Ratio 14.6 RATIO (10-20); Calcium,Total 9.9 mg/dL (8.5-10.1); Chloride 107 mmol/L (98-107); Creatinine, Serum 1.03 mg/dL (0.70-1.30); EST Glomerular Filtration Rate 77 mL/min (>60); Est Glom Filt Rate - Afr Amer 93 mL/min (>60); Glucose 78 mg/dL (74-106); Sodium Level 142 mmol/L (136-145)
== END | disposition home or self-care (01) ==
LOC: PSN 07:45
PROVIDERS: PCP Internal Medicine; Referring Provider Specialist; Visit Provider Specialist
DX: Z01.810 Encounter for preprocedural cardiovascular examination (principal); M16.11 Unilateral primary osteoarthritis, right hip; I10 Essential (primary) hypertension; Z79.899 Other long term (current) drug therapy
CPT/HCPCS: 36415; 80048; 82040; 85025; 93005